=== PATIENT | male | born 1990 | race Caucasian/White ===

== ENCOUNTER 2019-01-21 12:22 | Emergency (ER) | payer BC ==
[2019-01-21 12:33] VITALS: TEMP 97.7
--- NOTE | 2019-01-21 14:01 | ED ---
General Adult HPI - General Chief complaint: ENT Stated complaint: neck pain, sore throat Time Seen by Provider: 01/21/19 13:23 Source: patient, RN notes reviewed Mode of arrival: ambulatory Limitations: no limitations - History of Present Illness Initial comments: 28-year-old male without any significant past medical history presents to the emergency department for a chief complaint of neck pain. Patient states he has had some neck pain for the past 4 days. States that yesterday was worse and today seems to be improving. Patient states movement makes the pain of the neck worse, specifically looking up. He denies any injuries to the neck. However patient also started to have throat pain yesterday. States it only hurts when he swallows. Denies any difficulty swallowing. Patient saw his a provider at his clinic today who recommended he come to the ER for a CT of the neck to rule out a more concerning infection. Patient denies fevers or chills. Patient denies any headaches or confusion. Patient has no other complaints at this time including shortness of breath, chest pain, abdominal pain, nausea or vomiting, headache, or visual changes. - Related Data Previous Rx's Medication Instructions Recorded RX: Ibuprofen [Motrin] 600 mg PO Q8HR PRN #20 tab 12/28/14 Allergies Allergy/AdvReac Type Severity Reaction Status Date / Time No Known Allergies Allergy Verified 01/21/19 13:15 Review of Systems ROS Statement: Those systems with pertinent positive or pertinent negative responses have been documented in the HPI. ROS Other: All systems not noted in ROS Statement are negative. Past Medical History Past Medical History: No Reported History History of Any Multi-Drug Resistant Organisms: None Reported Past Surgical History: No Surgical Hx Reported Past Psychological History: No Psychological Hx Reported Smoking Status: Current every day smoker Past Alcohol Use History: Occasional Past Drug Use History: None Reported General Exam Limitations: no limitations General appearance: alert, in no apparent distress Head exam: Present: atraumatic, normocephalic, normal inspection Eye exam: Present: normal appearance, PERRL, EOMI. Absent: scleral icterus, conjunctival injection, periorbital swelling ENT exam: Present: normal exam, normal oropharynx (Nonerythematous, uvula midline, no tonsillar exudates noted bilaterally), mucous membranes moist, TM's normal bilaterally, normal external ear exam Neck exam: Present: normal inspection, full ROM (Patient has full range of motion of the neck but does have some pain with full extension). Absent: tenderness (No cervical spine tenderness), meningismus, lymphadenopathy Respiratory exam: Present: normal lung sounds bilaterally. Absent: respiratory distress, wheezes, rales, rhonchi, stridor Cardiovascular Exam: Present: regular rate, normal rhythm, normal heart sounds. Absent: systolic murmur, diastolic murmur, rubs, gallop, clicks Neurological exam: Present: alert, oriented X3, CN II-XII intact Psychiatric exam: Present: normal affect, normal mood Course Vital Signs 01/21/19 12:30 Temperature 97.7 F Pulse Rate 70 Respiratory 18 Rate Blood Pressure 132/76 O2 Sat by Pulse 97 Oximetry Medical Decision Making - Medical Decision Making 28-year-old male presents to the emergency department for a chief complaint of neck pain and pain with swallowing. Patient states that the neck pain started 4 days ago and does seem to be improving. However yesterday patient noticed he had pain with swallowing as well. He saw his primary care provider today who recommended he come to the emergency department for a CT of the neck. On exam patient does have full range of motion of the neck. No nuchal rigidity noted. No fevers or chills. No neurologic deficits. Oropharynx appears within normal limits, uvula is midline, no tonsillar exudates and bilaterally. Nonerythematous. Patient is drinking without difficulty in the emergency department. CBC CMP are unremarkable. Rapid strep is negative, will be sent for culture. Soft tissue neck CT showed no evidence of peritonsillar abscess no prevertebral fluid collection to suggest retropharyngeal abscess. There is a density in the vallecula it is presumed to represent secretions. This is likely the case. Discussed the risk this time is likely was the skeletal in nature. Patient may have a viral pharyngitis developing. Discussed follow-up with primary care in 1-2 days. If he has any worsening symptoms he will return to the emergency department. - Lab Data Result diagrams: 01/21/19 14:13 01/21/19 14:13 Lab Results 01/21/19 01/21/19 01/21/19 Range/Units 13:45 14:13 14:13 WBC 6.2 (3.8-10.6) k/uL RBC 5.00 (4.30-5.90) m/uL Hgb 15.4 (13.0-17.5) gm/dL Hct 45.7 (39.0-53.0) % MCV 91.4 (80.0-100.0) fL MCH 30.7 (25.0-35.0) pg MCHC 33.6 (31.0-37.0) g/dL RDW 12.3 (11.5-15.5) % Plt Count 187 (150-450) k/uL Neutrophils % 67 % Lymphocytes % 19 % Monocytes % 8 % Eosinophils % 4 % Basophils % 1 % Neutrophils # 4.1 (1.3-7.7) k/uL Lymphocytes # 1.2 (1.0-4.8) k/uL Monocytes # 0.5 (0-1.0) k/uL Eosinophils # 0.2 (0-0.7) k/uL Basophils # 0.0 (0-0.2) k/uL Sodium 141 (137-145) mmol/L Potassium 4.0 (3.5-5.1) mmol/L Chloride 109 H (98-107) mmol/L Carbon Dioxide 25 (22-30) mmol/L Anion Gap 7 mmol/L BUN 17 (9-20) mg/dL Creatinine 0.77 (0.66-1.25) mg/dL Est GFR (CKD-EPI)AfAm >90 (>60 ml/min/1.73 sqM) Est GFR (CKD-EPI)NonAf >90 (>60 ml/min/1.73 sqM) Glucose 83 (74-99) mg/dL Calcium 9.2 (8.4-10.2) mg/dL Total Bilirubin 0.5 (0.2-1.3) mg/dL AST 21 (17-59) U/L ALT 25 (21-72) U/L Alkaline Phosphatase 48 (38-126) U/L Total Protein 6.7 (6.3-8.2) g/dL Albumin 4.2 (3.5-5.0) g/dL Group A Strep Rapid Negative (Negative) Disposition Clinical Impression: Neck pain Disposition: HOME SELF-CARE Condition: Good Instructions (If sedation given, give patient instructions): Acute Neck Pain (ED) Additional Instructions: Please take Motrin and Tylenol for pain. Please follow-up with primary care in 1-2 days. If you have any difficulty swallowing solids or liquids or develop worsening symptoms return immediately to the emergency department. Is patient prescribed a controlled substance at d/c from ED?: No Referrals: Raffi Borja MD [Primary Care Provider] - 1-2 days Time of Disposition: 16:11
[2019-01-21 14:27] LABS: Basophils % (A) 1 %; Eosinophils # (A) 0.2 k/uL (0-0.7); Eosinophils % (A) 4 %; HCT 45.7 % (39.0-53.0); HGB 15.4 gm/dL (13.0-17.5); Lymphocytes # (A) 1.2 k/uL (1.0-4.8); Lymphocytes % (A) 19 %; MCH 30.7 pg (25.0-35.0); MCHC 33.6 g/dL (31.0-37.0); MCV 91.4 fL (80.0-100.0); Mean Platelet Volume 7.1; Monocytes # (A) 0.5 k/uL (0-1.0); Monocytes % (A) 8 %; Neutrophils # (A) 4.1 k/uL (1.3-7.7); Neutrophils % (A) 67 %; Platelet Count 187 k/uL (150-450); RDW 12.3 % (11.5-15.5); WBC 6.2 k/uL (3.8-10.6)
[2019-01-21 14:33] LABS: ALT 25 U/L (21-72); AST 21 U/L (17-59); Albumin 4.2 g/dL (3.5-5.0); Alkaline Phosphatase 48 U/L (38-126); Anion Gap 7 mmol/L; Blood Urea Nitrogen 17 mg/dL (9-20); Calcium 9.2 mg/dL (8.4-10.2); Carbon Dioxide 25 mmol/L (22-30); Chloride 109 mmol/L (98-107); Glucose 83 mg/dL (74-99); Sodium 141 mmol/L (137-145); Total Bilirubin 0.5 mg/dL (0.2-1.3); Total Protein 6.7 g/dL (6.3-8.2)
--- NOTE | 2019-01-21 15:15 | CT ---
EXAMINATION TYPE: CT soft tissue neck w con DATE OF EXAM: 01/21/2019 HISTORY: neck pain with difficulty swallowing COMPARISON: NONE CT DLP: 294.8 mGycm. Automated Exposure Control for Dose Reduction was Utilized. TECHNIQUE: CT scan of the neck is performed with IV Contrast, patient injected with 100 mL of Isovue 300, axial images are obtained, coronal and sagittal reformatted images are reviewed. FINDINGS: Airway: Pharyngeal tonsils appear symmetric without surrounding inflammatory fat stranding. No perito nsillar fluid collection is seen to suggest abscess. No significant narrowing of the oropharynx is se en. Few secretions are noted in the vallecula. Piriform sinuses are unremarkable. True and false foca l cords are also unremarkable. Parotid/submandibular glands: No gross abnormality seen. Carotid/Vascular Structures: There is a conventional three-vessel branch pattern of the aortic arch. Common carotid arteries, carotid bulbs, internal carotid arteries, and vertebral arteries appear haley nt in their visualized portions. Osseous Structures: Osseous structures appear intact. Mild mucosal thickening is seen of the ethmoid and maxillary sinuses. Sphenoid sinus on the left demonstrates moderate mucosal thickening. Frontal s inuses and mastoid air cells are well aerated. There is reversal of the usual cervical lordosis that may relate to muscular sprain/spasm or patient positioning. Other: No suspicious cervical adenopathy is seen. Orbits appear symmetric. IMPRESSION: 1. No CT evidence of peritonsillar abscess or phlegmonous change in this patient with stated neck kiara n and difficulty swallowing. No prevertebral fluid collection to suggest retropharyngeal abscess. 2. Density in the vallecula is presumed to represent secretions. If there is further concern direct p erformed.
[2019-01-21 16:28] VITALS: BP 126/66; PULSE 82; RESP 17
== END 2019-01-21 16:28 | disposition home or self-care (01) ==
LOC: EC 12:22
DX: M54.2 Cervicalgia (principal); F17.200 Nicotine dependence, unspecified, uncomplicated
CPT/HCPCS: 36415; 80053; 85025; 87081; 87430; 70491; 99284; Q9967

== ENCOUNTER 2019-08-15 17:48 | Emergency (ER) | payer BC ==
[2019-08-15 18:19] VITALS: BP 121/58; PULSE 81; TEMP 98.3
[2019-08-15 19:02] VITALS: RESP 18
--- NOTE | 2019-08-15 19:32 | XR ---
EXAMINATION TYPE: XR chest 2V DATE OF EXAM: 08/15/2019 COMPARISON: NONE HISTORY: Cough and congestion TECHNIQUE: Frontal and lateral views of the chest are obtained. FINDINGS: Heart and mediastinum are normal. Lungs are clear. Diaphragm is normal. Bony thorax appear s normal. IMPRESSION: Normal chest
--- NOTE | 2019-08-15 19:40 | ED ---
URI HPI - General Chief Complaint: Upper Respiratory Infection Stated Complaint: Upper Respitory Issues Time Seen by Provider: 08/15/19 18:28 Source: patient Mode of arrival: ambulatory Limitations: no limitations - History of Present Illness Initial Comments: Patient is a 29-year-old male presenting to the emergency Department with complaints of a cough 2 days. Patient states he feels some burning in the middle of his chest when he coughs and he feels slightly short of breath when he is at work today. Patient states he is having nasal discharge and congestion as well. Patient denies any fever, chills, nausea, vomiting, abdominal pain. Patient has no pertinent past medical history takes no medications. Patient has no other complaints at this time. Upon arrival to the ER, vital signs are stable. - Related Data Previous Rx's Medication Instructions Recorded Ibuprofen [Motrin] 600 mg PO Q8HR PRN #20 tab 12/28/14 methylPREDNISolone [Medrol Dose 4 mg PO DIRECTED #1 pack 08/15/19 Pack] Allergies Allergy/AdvReac Type Severity Reaction Status Date / Time No Known Allergies Allergy Verified 01/21/19 13:15 Review of Systems ROS Statement: Those systems with pertinent positive or pertinent negative responses have been documented in the HPI. ROS Other: All systems not noted in ROS Statement are negative. Past Medical History Past Medical History: No Reported History History of Any Multi-Drug Resistant Organisms: None Reported Past Surgical History: No Surgical Hx Reported Past Psychological History: No Psychological Hx Reported Smoking Status: Former smoker Past Alcohol Use History: Occasional Past Drug Use History: None Reported General Exam - General Exam Comments Initial Comments: GENERAL: Well-appearing, well-nourished and in no acute distress. HEAD: Atraumatic, normocephalic. EYES: Pupils equal round and reactive to light, extraocular movements intact, sclera anicteric, conjunctiva are normal. ENT: TMs normal, nares patent, oropharynx clear without exudates. Moist mucous membranes. NECK: Normal range of motion, supple without lymphadenopathy or JVD. LUNGS: Breath sounds clear to auscultation bilaterally and equal. No wheezes rales or rhonchi. HEART: Regular rate and rhythm without murmurs, rubs or gallops. ABDOMEN: Soft, nontender, normoactive bowel sounds. No guarding, no rebound. No masses appreciated. : Deferred EXTREMITIES: Normal range of motion, no pitting or edema. No clubbing or cyanosis. NEUROLOGICAL: Normal speech, normal gait. PSYCH: Normal mood, normal affect. SKIN: Warm, Dry, normal turgor, no rashes or lesions noted. Limitations: no limitations Course Vital Signs 08/15/19 08/15/19 18:17 19:00 Temperature 98.3 F Pulse Rate 81 Respiratory 21 18 Rate Blood Pressure 121/58 O2 Sat by Pulse 99 Oximetry Medical Decision Making - Medical Decision Making Patient is a 29-year-old male presenting with URI-type symptoms 2 days. Vital signs are stable. Exam is unremarkable. Chest x-ray shows no acute abnormalities. I discussed with patient this is most likely bronchitis versus URI. Patient will be given prescription for steroid Dosepak. Patient is able for discharge at this time. Patient is agreement with this plan of care. Return parameters were discussed with the patient and he verbalized understanding. Disposition Clinical Impression: Upper respiratory tract infection Disposition: HOME SELF-CARE Condition: Stable Instructions (If sedation given, give patient instructions): Upper Respiratory Infection (ED) Additional Instructions: Please return to the Emergency Department if symptoms worsen or any other co ncerns. Take steroids as prescribed. Prescriptions: methylPREDNISolone [Medrol Dose Pack] 4 mg PO DIRECTED #1 pack Is patient prescribed a controlled substance at d/c from ED?: No Referrals: Raffi Borja MD [Primary Care Provider] - 1-2 days
== END 2019-08-15 20:00 | disposition home or self-care (01) ==
LOC: EC 17:48
DX: J06.9 Acute upper respiratory infection, unspecified (principal); Z87.891 Personal history of nicotine dependence
CPT/HCPCS: 71046; 99283

== ENCOUNTER 2021-07-26 14:50 | Emergency (ER) | payer BC, OTHER ==
[2021-07-26] MEDS ORDERED: ORPHENADRINE 30 MG/ML 2 ML VIAL IM STA (15:35)
[2021-07-26] MEDS ORDERED: KETOROLAC 15 MG/ML 1 ML VIAL IM STA (15:36)
--- NOTE | 2021-07-26 15:42 | ED ---
General Adult HPI - General Chief complaint: Back Pain/Injury Stated complaint: [facility] Back Injury Time Seen by Provider: 07/26/21 15:20 Source: patient Mode of arrival: wheelchair Limitations: no limitations - History of Present Illness Initial comments: Dictation was produced using [employer]) dictation software. please excuse any grammatical, word or spelling errors. Chief Complaint: 31-year-old male past medical history presents with back pain History of Present Illness: 21-year-old male 2 days ago he was at work. He bent down to carry some items. He started to twist with these items in his hand when all of a sudden he felt sharp lower back pain. Patient states the pain was severe. He is been at home ever since. Patient states he has significant pain whenever he moves. Denies any history of back problems. He states he didn't hurt his back from sports in the past. He is non-radiating symptoms. No numbness distally paresthesias to the lower extremities. No saddle anesthesia. No bowel or bladder incontinence or retention. Take some Tylenol that he got from the local pharmacy which slightly improved of symptoms. He localizes the pain to the lower lumbar area. The ROS documented in this emergency department record has been reviewed and confirmed by me. Those systems with pertinent positive or negative responses have been documented in the HPI. All other systems are other negative and/or noncontributory. PHYSICAL EXAM: General Impression: Alert and oriented x3, not in acute distress at rest. He does grimace whenever moving or manipulating the lower extremities HEENT: Normocephalic atraumatic, extra-ocular movements intact, pupils equal and reactive to light bilaterally, mucous membranes moist. Cardiovascular: Heart regular rate and rhythm Chest: Able to complete full sentences, no retractions, no tachypnea Abdomen: abdomen soft, non-tender, non-distended, no organomegaly Musculoskeletal: Pulses present and equal in all extremities, no peripheral edema, Motor: no focal deficits noted Neurological: CN II-XII grossly intact, no focal motor or sensory deficits noted Skin: Intact with no visualized rashes Psych: Normal affect and mood ED course: 31-year-old male presents to the emergency department for atraumatic back pain. Vital signs upon arrival are within acceptable limits. Patient does not have any red flag features. Lumbar x-ray shows no vertebral compression, collapse or malalignment. Patient given NSAIDs, muscle relaxants with slight improvement of symptoms. Patient is given IM Valium which significantly improved his symptoms's point where he can ambulate. Patient will be discharged given referral to instructional technology specialist. Patient states he'll need an MRI to evaluate for soft tissue injury. - Related Data Home Medications Medication Instructions Recorded Confirmed Acetaminophen Tab [Tylenol Tab] 1,000 mg PO Q6HR PRN 07/26/21 07/26/21 Previous Rx's Medication Instructions Recorded Cyclobenzaprine [Flexeril] 10 mg PO TID PRN #20 tab 07/26/21 Allergies Allergy/AdvReac Type Severity Reaction Status Date / Time No Known Allergies Allergy Verified 07/26/21 16:57 Review of Systems ROS Statement: Those systems with pertinent positive or pertinent negative responses have been documented in the HPI. ROS Other: All systems not noted in ROS Statement are negative. Past Medical History Past Medical History: No Reported History History of Any Multi-Drug Resistant Organisms: None Reported Past Surgical History: No Surgical Hx Reported Past Psychological History: No Psychological Hx Reported Smoking Status: Current every day smoker Past Alcohol Use History: Occasional Past Drug Use History: None Reported General Exam Limitations: no limitations Course Vital Signs 07/26/21 15:08 Temperature 98.3 F Pulse Rate 56 L Respiratory 20 Rate Blood Pressure 121/80 O2 Sat by Pulse 98 Oximetry Disposition Clinical Impression: Back strain Disposition: HOME SELF-CARE Condition: Good Instructions (If sedation given, give patient instructions): Acute Low Back Pain (ED) Prescriptions: Cyclobenzaprine [Flexeril] 10 mg PO TID PRN #20 tab PRN Reason: Muscle Spasm Is patient prescribed a controlled substance at d/c from ED?: No Referrals: Raffi Borja MD [REFERRING] - 1-2 days Brandyn Grossman DO [Doctor of Osteopathic Medicine] - 1-2 days
[2021-07-26] MEDS ORDERED: DIAZEPAM 5 MG/ML 2 ML INJ IM ONE (16:32)
--- NOTE | 2021-07-26 16:36 | XR ---
EXAMINATION TYPE: XR lumbar spine 2 or 3V DATE OF EXAM: 07/26/2021 Comparison: None Clinical History: 31-year-old male lower back pain, atraumatic back pain Findings: Some scattered small air-fluid levels in the mid abdomen. Gassy colon. 5 lumbar type vertebral bodies . Mild facet arthropathy lower lumbar spine. Vertebral body heights are preserved and alignment is ma intained. Impression: 1. No vertebral compression collapse or malalignment. 2. Small air-fluid levels in the mid abdomen could be transient or could represent a mild regional il eus or enteritis.
[2021-07-26] MEDS ORDERED: ACET/COD 300 MG/30 MG STARTER PACK 6 TAB BTL PO STA (17:21)
[2021-07-26 17:37] VITALS: BP 128/78; PULSE 78; RESP 16; TEMP 98.2
== END 2021-07-26 17:36 | disposition home or self-care (01) ==
LOC: EC 14:50
DX: S39.012A Strain of muscle, fascia and tendon of lower back, initial encounter (principal); F17.200 Nicotine dependence, unspecified, uncomplicated; X50.0XXA Overexertion from strenuous movement or load, initial encounter
CPT/HCPCS: 99283; 96372 ×3; 72100; J2360; J3360; J1885

== ENCOUNTER 2022-04-14 18:34 | Emergency (ER) | payer OTHER ==
[2022-04-14 18:39] VITALS: TEMP 98
--- NOTE | 2022-04-14 22:46 | ED ---
Nausea/Vomiting/Diarrhea HPI - General Chief complaint: Nausea/Vomiting/Diarrhea Stated complaint: drowsy, not feeling well Time Seen by Provider: 04/14/22 22:41 Source: patient, RN notes reviewed Mode of arrival: ambulatory Limitations: no limitations - History of Present Illness Initial comments: Patient presents to the emergency department stating that he had an episode of nausea and vomiting this morning when he was getting ready for work. Patient ended up not going to work. As the day went on his symptoms resolved. Patient actually has no symptoms at this time. Patient believes is because he ER at [facility]. Patient denying any pain. No headache, no fever or chills, no changes in vision or hearing, no sore throat or difficulty with speech, no neck pain, no chest pain or shortness of breath, no abdominal pain, no hematemesis or coffee-ground emesis. No melena or hematochezia., no changes in urination or bowel movements, no numbness or tingling, no extremity pain, no skin rashes or lesions. Past medical, surgical, social, and family history reviewed. MD complaint: nausea, vomiting - Related Data Home Medications Medication Instructions Recorded Confirmed Acetaminophen Tab [Tylenol Tab] 1,000 mg PO Q6HR PRN 07/26/21 07/26/21 Previous Rx's Medication Instructions Recorded Cyclobenzaprine [Flexeril] 10 mg PO TID PRN #20 tab 07/26/21 Allergies Allergy/AdvReac Type Severity Reaction Status Date / Time No Known Allergies Allergy Verified 04/14/22 18:39 Review of Systems ROS Statement: Those systems with pertinent positive or pertinent negative responses have been documented in the HPI. ROS Other: All systems not noted in ROS Statement are negative. Past Medical History Past Medical History: No Reported History History of Any Multi-Drug Resistant Organisms: None Reported Past Surgical History: No Surgical Hx Reported Past Psychological History: No Psychological Hx Reported Smoking Status: Current every day smoker Past Alcohol Use History: Occasional Past Drug Use History: None Reported General Exam - General Exam Comments Initial Comments: And in no distress. Does not appear to be ill or toxic. Vital signs reviewed Limitations: no limitations General appearance: alert, in no apparent distress Head exam: Present: atraumatic, normocephalic, normal inspection Eye exam: Present: normal appearance, PERRL, EOMI. Absent: scleral icterus, conjunctival injection, periorbital swelling ENT exam: Present: normal exam, normal oropharynx, mucous membranes moist, normal external ear exam. Absent: mucous membranes dry Neck exam: Present: normal inspection. Absent: tenderness, meningismus, lymphadenopathy Respiratory exam: Present: normal lung sounds bilaterally. Absent: respiratory distress, wheezes, rales, rhonchi, stridor, chest wall tenderness, accessory muscle use, decreased breath sounds, prolonged expiratory Cardiovascular Exam: Present: regular rate, normal rhythm, normal heart sounds. Absent: systolic murmur, diastolic murmur, rubs, gallop, clicks GI/Abdominal exam: Present: soft, normal bowel sounds. Absent: distended, tenderness, guarding, rebound, rigid Extremities exam: Present: normal inspection, full ROM, normal capillary refill. Absent: tenderness, pedal edema, joint swelling, calf tenderness Back exam: Present: normal inspection Neurological exam: Present: alert, oriented X3, CN II-XII intact Psychiatric exam: Present: normal affect, normal mood Skin exam: Present: warm, dry, intact, normal color. Absent: rash Course Vital Signs 04/14/22 18:36 Temperature 98.0 F Pulse Rate 78 Respiratory 18 Rate Blood Pressure 147/92 O2 Sat by Pulse 98 Oximetry Medical Decision Making - Medical Decision Making Patient had nausea and vomiting earlier in the day and didn't go to work. Patient requesting a work note. Patient currently asymptomatic. Abdominal exam is benign. Discussed possible etiologies to include viral etiology, foodborne etiology. Patient adamantly told us any symptoms come back or any pain develops to return immediately. Patient was told to return to the ER for any signs or symptoms worsen. Told to return immediately if any other problems arise. All questions answered. Treatment plan discussed. Patient in agreement Every effort has been made to ensure accuracy of this dictation. However, due to the limitations of electronic medical records and dictation devices, errors in charting still occur. The case was discussed in detail with ED attending physician. Presentation, findings, treatment plan discussed in detail. Structural Engineer Dr. Azevedo Disposition Clinical Impression: Acute gastritis Narrative: Symptoms resolved Disposition: HOME SELF-CARE Condition: Good Instructions (If sedation given, give patient instructions): Acute Nausea and Vomiting (ED) Additional Instructions: Follow-up with your regular physician as directed. Return to the ER immediately if any symptoms worsen, new symptoms arise, or any other problems develop. Is patient prescribed a controlled substance at d/c from ED?: No Referrals: Richar Benton MD [Primary Care Provider] - 1-2 days (As needed) Time of Disposition: 22:45
[2022-04-14 22:57] VITALS: BP 123/83; PULSE 56; RESP 16
== END 2022-04-14 22:56 | disposition home or self-care (01) ==
LOC: EC 18:34
DX: K29.00 Acute gastritis without bleeding (principal); F17.200 Nicotine dependence, unspecified, uncomplicated
CPT/HCPCS: 99283

== ENCOUNTER 2023-11-24 15:04 | Emergency (ER) | payer OTHER ==
[2023-11-24] MEDS: dexAMETHasone 2 MG TAB PO STA (15:54)
[2023-11-24] MEDS: traMADol 50 MG TAB PO STA (15:54)
[2023-11-24] MEDS: KETOROLAC 15 MG/ML 1 ML VIAL IM STA (15:55)
[2023-11-24 16:01] VITALS: RESP 18
--- NOTE | 2023-11-24 16:13 | XR ---
EXAMINATION TYPE: XR lumbar spine 2 or 3V DATE OF EXAM: 11/24/2023 3:52 PM CLINICAL INDICATION:Male, 33 years old with history of pain; [facility] COMPARISON: None TECHNIQUE: XR lumbar spine 2 or 3V - Frontal, lateral and coned in L5-S1 lateral views of the spine. FINDINGS: No evidence of any acute osseous pathology. No evidence of loss of vertebral body height i s seen. There is normal alignment of the lumbar vertebral bodies. Mild scattered disc space narrowing . Multilevel marginal osteophyte formation throughout the visualized spine. There is facet joint arth ropathy throughout the spine. Scattered at least mild neural foraminal stenosis. IMPRESSION: 1. No acute fracture. 2. Mild multilevel disc degeneration.
--- NOTE | 2023-11-24 16:17 | ED ---
Back Pain HPI - General Chief Complaint: Back Pain/Injury Stated Complaint: Back Pain Source: patient, RN notes reviewed, old records reviewed Mode of arrival: ambulatory Limitations: no limitations - History of Present Illness Initial Comments: This is a 33-year-old male to the ER for evaluation today. Patient presents to the emergency department today for evaluation regards to back pain significant back pain and back pain down the left leg. Patient has persistent back pain which has been going on for a few days with no traumatic injury. No loss of bowel or bladder no fevers no travel history no sick contacts no other complaints he does have history of back pain with no significant prior treatment or evaluation MD Complaint: back pain -: days(s) Similar Symptoms Previously: Yes Place: home Radiation: none Severity: mild, moderate Severity scale (1-10): 3 Quality: stabbing Consistency: constant Improves With: none Worsens With: none Associated Symptoms: denies other symptoms - Related Data Home Medications Medication Instructions Recorded Confirmed Acetaminophen Tab [Tylenol Tab] 1,000 mg PO Q6HR PRN 07/26/21 07/26/21 Previous Rx's Medication Instructions Recorded Cyclobenzaprine [Flexeril] 10 mg PO TID PRN #20 tab 07/26/21 Allergies Allergy/AdvReac Type Severity Reaction Status Date / Time No Known Allergies Allergy Verified 11/24/23 15:08 Review of Systems ROS Statement: Those systems with pertinent positive or pertinent negative responses have been documented in the HPI. ROS Other: All systems not noted in ROS Statement are negative. Past Medical History Past Medical History: No Reported History History of Any Multi-Drug Resistant Organisms: None Reported Past Surgical History: No Surgical Hx Reported Past Psychological History: No Psychological Hx Reported Smoking Status: Former smoker Past Alcohol Use History: Occasional Past Drug Use History: None Reported General Exam Limitations: no limitations General appearance: alert, in no apparent distress Head exam: Present: atraumatic, normocephalic, normal inspection Eye exam: Present: normal appearance, PERRL, EOMI. Absent: scleral icterus, conjunctival injection, periorbital swelling ENT exam: Present: normal exam, mucous membranes moist Neck exam: Present: normal inspection. Absent: tenderness, meningismus, lymphadenopathy Respiratory exam: Present: normal lung sounds bilaterally. Absent: respiratory distress, wheezes, rales, rhonchi, stridor Cardiovascular Exam: Present: regular rate, normal rhythm, normal heart sounds. Absent: systolic murmur, diastolic murmur, rubs, gallop, clicks GI/Abdominal exam: Present: soft, normal bowel sounds. Absent: distended, tenderness, guarding, rebound, rigid Extremities exam: Present: normal inspection, full ROM, normal capillary refill. Absent: tenderness, pedal edema, joint swelling, calf tenderness Back exam: Present: normal inspection Neurological exam: Present: alert, oriented X3, CN II-XII intact Psychiatric exam: Present: normal affect, normal mood Skin exam: Present: warm, dry, intact, normal color. Absent: rash Course Vital Signs 11/24/23 11/24/23 15:05 17:00 Temperature 98.2 F 98 F Pulse Rate 88 86 Respiratory 18 18 Rate Blood Pressure 120/85 118/84 O2 Sat by Pulse 98 98 Oximetry - Reevaluation(s) Reevaluation #1: 11/24/23 16:37 Medical records reviewed Reevaluation #2: 11/24/23 16:37 Patient symptoms improved Reevaluation #3: 11/24/23 16:37 Patient informed of results and questions answered Reevaluation #4: Was pt. sent in by a medical professional or institution (, PA, RARE/ENDANGERED SPECIES SPECIALIST, urgent c are, hospital, or prison...) When possible be specific @ -no Did you speak to anyone other than the patient for history (EMS, parent, family, police, friend...)? What history was obtained from this source @ -no Did you review nursing and triage notes (agree or disagree)? Why? @ -agree Are old charts reviewed (outside hosp., previous admission, EMS record, old EKG, old radiological studies, urgent care reports/EKG's, prison records)? Report findings @ -yes Differential Diagnosis (chest pain, altered mental status, abdominal pain women, abdominal pain men, vaginal bleeding, weakness, fever, dyspnea, syncope, headache, dizziness, GI bleed, back pain, seizure, CVA, palpatations, mental health, musculoskeletal)? @ -prior EKG interpreted by me (3pts min.). @ -no X-rays interpreted by me (1pt min.). @ -yes negative for acute disease CT interpreted by me (1pt min.). @ -no U/S interpreted by me (1pt. min.). @ -no What testing was considered but not performed or refused? (CT, X-rays, U/S, labs)? Why? @ -none What meds were considered but not given or refused? Why? @ -none Did you discuss the management of the patient with other professionals (professionals i.e. , PA, RARE/ENDANGERED SPECIES SPECIALIST, lab, RT, psych nurse, social work professor, boxing machine operator, teacher, loan officer assistant, case mgr)? Give summary @ -no Was smoking cessation discussed for >3mins.? @ -no Was critical care preformed (if so, how long)? @ -no Were there social determinants of health that impacted care today? How? (Homelessness, low income, unemployed, alcoholism, drug addiction, transportation, low edu. Level, literacy, decrease access to med. care, halfway, rehab)? @ -none Was there de-escalation of care discussed even if they declined (Discuss DNR or withdrawal of care, Hospice)? DNR status @ -no What co-morbidities impacted this encounter? (DM, HTN, Smoking, COPD, CAD, Cancer, CVA, ARF, Chemo, Hep., AIDS, mental health diagnosis, sleep apnea, morbid obesity)? @ -none Was patient admitted / discharged? Hospital course, mention meds given and route, prescriptions, significant lab abnormalities, going to OR and other pertinent info. @ - 33 male to ER for evaluation of back pain. Back pain with pain down the right leg with normal x-ray. Patient's pain is improved here is able to ambulate with no neurological findings patient can be discharged home Discharge Undiagnosed new problem with uncertain prognosis? @ -no Drug Therapy requiring intensive monitoring for toxicity (Heparin, Nitro, Insulin, Cardizem)? @ -no Were any procedures done? @ -no Diagnosis/symptom? @ -Acute back pain Acute, or Chronic, or Acute on Chronic? @ -Acute Uncomplicated (without systemic symptoms) or Complicated (systemic symptoms)? @ -Complicated Side effects of treatment? @ -no Exacerbation, Progression, or Severe Exacerbation? @ -exacerbation Poses a threat to life or bodily function? How? (Chest pain, [place], [place], pneumonia, PE, COPD, DKA, ARF, appy, cholecystitis, CVA, Diverticulitis, Homicidal, Suicidal, threat to staff... and all critical care pts) @ -no Reevaluation #5: Differential Back Pain: Strain, zoster, cauda equina syndrome, epidural abscess, vertebral osteomyelitis, discitis, fracture, subluxation, disc herniation, DJD, spinal stenosis, dissection, AAA, pancreatitis, peptic ulcer disease, pyelonephritis, kidney stone, this is not meant to be an all-inclusive list. Medical Decision Making - Medical Decision Making 33 male to ER for evaluation of back pain. Back pain with pain down the right leg with normal x-ray. Patient's pain is improved here is able to ambulate with no neurological findings patient can be discharged home - Radiology Data Radiology results: report reviewed (X-ray lumbosacral spine negative for traumatic or acute disease), image reviewed Disposition Clinical Impression: Sciatica, Mid back pain, Mechanical back pain, Strain of lumbar region Disposition: HOME SELF-CARE Condition: Good Instructions (If sedation given, give patient instructions): Acute Low Back Pain (ED) Is patient prescribed a controlled substance at d/c from ED?: No Referrals: Richar Benton MD [Primary Care Provider] - 1-2 days Time of Disposition: 16:30
[2023-11-24] MEDS: traMADol 50 MG STARTER PACK 3 TAB BTL PO STA (16:43)
[2023-11-24] MEDS: IBUPROFEN 600 MG STARTER PACK 4 TAB BTL PO STA (16:45)
[2023-11-24 17:08] VITALS: BP 118/84; PULSE 86; TEMP 98
== END 2023-11-24 17:27 | disposition home or self-care (01) ==
LOC: EC 15:04
DX: S39.012A Strain of muscle, fascia and tendon of lower back, initial encounter (principal); X58.XXXA Exposure to other specified factors, initial encounter
CPT/HCPCS: 72100; 99284; 96372; J8540; J1885